=== PATIENT | female | born 1940 | race Caucasian/White ===

== ENCOUNTER 2017-12-18 14:27 | Emergency (ER) | payer OTHER ==
[~2017-12-18] VITALS: Ht 152.4 cm; Wt 59.7 kg
[2017-12-18 14:57] LABS: BASOPHIL (%) 0.3 % (0-1); EOSINOPHIL (%) 0 % (0-5); HEMATOCRIT 33.8 % (36.0-46.0); IMMATURE GRANULOCYTE (%) 3.2 % (0.0-0.7); LYMPHOCYTE (%) 6.7 % (15-42); LYMPHOCYTE COUNT 0.4 K/uL (1.0-2.8); MCH 31.7 PG (29.0-34.0); MCHC 35.5 G/DL (30.0-36.0); MCV 89.4 FL (83-99); MONOCYTE (%) 6.9 % (3-12); MONOCYTE COUNT 0.5 K/uL (0-0.8); NEUTROPHIL (%) 82.9 % (45-76); NEUTROPHIL COUNT 5.4 K/uL (1.8-6.4); PLATELET COUNT 268 K/uL (156-360); RBC DIS.WIDTH-CV 13.9 % (11.8-14.6); RBC DIS.WIDTH-SD 45.1 % (39-53); RED BLOOD COUNT 3.78 M/uL (3.80-5.20); WHITE BLOOD COUNT 6.5 K/uL (4.1-10.2)
[2017-12-18 15:17] LABS: ALBUMIN 3.6 g/dL (3.2-4.8); CHLORIDE 97 mEq/L (99-109); SODIUM 133 mEq/L (136-147)
[2017-12-18 15:20] LABS: GLUCOSE 142 mg/dL (70-99); TOTAL PROTEIN 6.4 g/dL (6.4-8.3)
[2017-12-18 15:22] LABS: TOTAL BILIRUBIN 0.5 mg/dL (0.0-1.0)
[2017-12-18 15:23] LABS: ALKALINE PHOSPHATASE 42 IU/L (3-129)
[2017-12-18 15:24] LABS: CREATININE 1.3 mg/dL (0.6-1.3); GFR ESTIMATE (CALCULATED) 42 mL/min/
[2017-12-18 15:25] LABS: AST (GOT) 67 IU/L (2-34); DIRECT BILIRUBIN 0.3 mg/dL (0.0-0.3); UREA NITROGEN (BUN) 23 mg/dL (9-23)
[2017-12-18 15:26] LABS: ALT (GPT) 41 IU/L (3-49)
[2017-12-18 16:56] LABS: APPEARANCE CLEAR ((CLEAR)); BILIRUBIN NEGATIVE; BLOOD NEGATIVE; COLOR YELLOW ((YELLOW)); GLUCOSE (STRIP) NEGATIVE; KETONES NEGATIVE; LEUKOCYTES NEGATIVE; NITRITE NEGATIVE; PROTEIN (STRIP) NEGATIVE; UCUL ADDED? NO; UROBILINOGEN 0.2 MG/DL (0.2-1.0)
[2017-12-18 18:57] VITALS: BP 130/50
== END 2017-12-18 19:08 | disposition home or self-care (01) ==
LOC: EME 14:27
DX: R50.9 Fever, unspecified (principal); R11.0 Nausea; R91.8 Other nonspecific abnormal finding of lung field; I45.10 Unspecified right bundle-branch block; I12.9 Hypertensive chronic kidney disease with stage 1 through stage 4 chronic kidney disease, or unspecified chronic kidney disease; E11.22 Type 2 diabetes mellitus with diabetic chronic kidney disease; N18.9 Chronic kidney disease, unspecified; M06.9 Rheumatoid arthritis, unspecified
CPT/HCPCS: 71045; 80048; 80076; 81003; 83605; 85025; 87040; 93005; 99281; 99284